=== PATIENT | female | born 1980 | race Caucasian/White ===

== ENCOUNTER 2017-06-04 00:20 | Observation (INO) | payer OTHER ==
[2017-06-04] VITALS (9 sets, daily range): BP systolic 11–127; BP diastolic 54–80
[~2017-06-04] VITALS: Ht 177.8 cm; Wt 116.6 kg
[~2017-06-04 00:20] MED LIST: CA C1TAB6 PO; FERR159T PO; FLUO-201 PO; HYDR-4309 PO; MULT1CAP59 PO; PANT20TA27 PO; PROP60TA15 PO; PROP80CA PO
[2017-06-04 06:18] LABS: PLATELET COUNT, AUTOMATED 243 K/uL (150-450)
[2017-06-04] MEDS ORDERED: SCOPOLAMINE 1.5 MG PATCH TD ONE ×3 (06:25→06:40)
[2017-06-04] MEDS ORDERED: MIDAZOLAM 2 MG/2 ML VIAL IVP ONE (06:30)
[2017-06-04] MEDS ORDERED: LIDOCAINE/SOD BICARB 8.4% SYR ID ONE (06:30)
[2017-06-04] MEDS ORDERED: cefOXitin/DEX(*) 2GM/50ML PREM 50 ML IVPB ONE (06:30)
[2017-06-04] MEDS ORDERED: NORMOSOL R SOLN(*) 1000 ML BAG 1,000 ML IV PRN (06:30)
[2017-06-04] MEDS ORDERED: DEXAMETHASONE SOD PHOS 10MG/ML ONE (06:46)
[2017-06-04] MEDS ORDERED: PROPOFOL EMUL(*) 10MG/ML 20 ML 20 ML ONE ×2 (06:46→08:23)
[2017-06-04] MEDS ORDERED: LIDOCAINE MPF 1% 5 ML VIAL ONE (06:46)
[2017-06-04] MEDS ORDERED: ONDANSETRON 4 MG/2 ML VIAL ONE (06:46)
[2017-06-04] MEDS ORDERED: ROCURONIUM BROM 10 MG/ML 10 ML ONE (06:46)
[2017-06-04] MEDS ORDERED: fentaNYL CITR 100 MCG/2 ML AMP ONE ×2 (06:46→10:44)
[2017-06-04] MEDS ORDERED: MIDAZOLAM 2 MG/2 ML VIAL ONE (06:47)
[2017-06-04] MEDS ORDERED: VASOPRESSIN 20 UNIT/ML VIAL ONE (06:56)
[2017-06-04] MEDS ORDERED: NS(*) 0.9% 100 ML BAG 100 ML ONE (06:56)
[2017-06-04] MEDS ORDERED: ROPIVACAINE 0.2% 20 ML VIAL ONE (06:56)
[2017-06-04] MEDS ORDERED: PHENAZOPYRIDINE 200 MG TAB ONE (06:57)
[2017-06-04] MEDS ORDERED: MORPHINE PF 5 MG/10 ML AMP ONE (07:04)
[2017-06-04] MEDS ORDERED: GLYCOPYRROLATE 0.2 MG/ML SDV ONE (07:52)
[2017-06-04] MEDS ORDERED: SUGAMMADEX SOD 500 MG/5 ML SDV ONE ×2 (09:47→11:38)
[2017-06-04] MEDS ORDERED: DLR(*) 1000 ML BAG 1,000 ML IV PRN (10:01)
[2017-06-04] MEDS ORDERED: ZOLPIDEM TARTRATE 10 MG TAB PO PRN (10:05)
[2017-06-04] MEDS ORDERED: SIMETHICONE 80 MG CHEW CHEW PRN (10:05)
[2017-06-04] MEDS ORDERED: ACETAMINOPHEN 325 MG TAB PO PRN (10:05)
[2017-06-04] MEDS ORDERED: PROMETHAZINE 25 MG/ML 1 ML AMP IVP PRN (10:05)
[2017-06-04] MEDS ORDERED: ONDANSETRON 4 MG/2 ML VIAL IV PRN (10:05)
[2017-06-04] MEDS ORDERED: BELLADONNA ALK/OPIUM 60MG SUPP PR PRN (10:05)
--- NOTE | 2017-06-04 10:15 | Post Operative Note ---
Operative Note - OPTICAL TECHNICIAN Operative Day Date: Jun 04, 2017 Time: 10:04 Physicians Surgeon: Yousif Slackline Operator: Kathy Anesthesia: GETA/spinal Diagnosis Pre-Op Diagnosis: Bicornuate uterus Enlarged uterus Menorrhagia Post-Op Diagnosis: Same Procedure Findings: enlarged uterus endometriosis bicornuate uterus Procedure(s): LAVH/BS MMC Cysto Specimen Removed:(Maybe N/A): uterus, tubes Complications: none [id number] Fluids Fluids: 1200 Estimated Blood Loss: 100 Dictated Date OP Note Dictated: Jun 04, 2017 Time OP Note Dictated: 10:06 Copies to: JEB MONTE MD, TRAVIS MD Jun 04, 2017 10:15
[2017-06-04] MEDS ORDERED: diphenhydrAMINE 25 MG CAP PO PRN (10:25)
[2017-06-04] MEDS ORDERED: NALBUPHINE HCL 10 MG/ML AMP IVP PRN (10:25)
[2017-06-04] MEDS: KETOROLAC 30 MG/ML VIAL IVP SCH ×3 (11:30→23:37)
--- NOTE | 2017-06-04 16:48 | OPERATIVE REPORT 1 ---
EVENT DATE: June 04, 2017 SURGEON: Abelardo Dodd MD ANESTHESIOLOGIST: Kyle Lock MD ANESTHESIA: General endotracheal and regional anesthesia with a spinal. IT ENGINEER: Yefri Chavez MD PREOPERATIVE DIAGNOSES 1. Enlarged uterus. 2. Menorrhagia. 3. Bicornuate uterus. POSTOPERATIVE DIAGNOSES 1. Enlarged uterus. 2. Menorrhagia. 3. Bicornuate uterus. 4. Endometriosis of the pelvic peritoneum. PROCEDURE PERFORMED 1. Laparoscopic-assisted vaginal hysterectomy. 2. Bilateral salpingectomy. 3. Modified Orellana culdoplasty. 4. Diagnostic cystoscopy. FLUIDS Crystalloid 1200 mL IV. ESTIMATED BLOOD LOSS Less than 100 mL. FINDINGS Inspecting the pelvis, the uterus was noted to be bicornuate, but only with a subtle indentation on the uterine fundus. There were not definite right and left uterine horns; however, there was definite right and left endometrial cavities. Normal ureters. Normal-appearing ovaries and tubes bilaterally. There was a pelvic peritoneal endometriosis noted in the posterior cul-de-sac along the uterosacral ligament. PROCEDURE IN DETAIL The patient was brought to the operating room with a working IV, and spinal anesthetic was placed by Dr. Lock. She was then moved to the dorsal supine position and prepped and draped in the usual sterile fashion in the dorsal lithotomy position. A weighted speculum was placed in the vagina. The cervix was grasped on the anterior lip with a single-toothed tenaculum. It was sounded to a depth of 10 cm with a definite uterine cavity deviating off to the patient's left and another one deviating off to the patient's right. The left cavity was used and carefully dilated to a size 7 Hegar dilator. A size 10 BARAK uterine manipulator was selected, assembled, and passed through the cervix into the uterus. The bulb was inflated and secured, and all other instruments were then removed. The legs were brought back to the supine position, and gloves were changed. The umbilicus was infiltrated with 0.2% Naropin, and a 5 mm stab incision was made. A Veress needle was passed through this incision into the abdomen, and a pneumoperitoneum was created to an intra-abdominal pressure of 20 mmHg. This was reduced to 15 mmHg once all ports had been placed. The Veress needle was removed, and a 5 mm bladeless trocar was passed through the umbilical incision while stabilizing the anterior abdominal wall and under direct visualization with the scope. The abdomen and pelvis were surveyed with the above findings noted. Two additional 5 mm ports were placed in the right and left lower quadrants under direct visualization with the scope and without incident. Using the Gyrus device, the left fallopian tube was dissected away from the ovary and its mesosalpinx connection along its length to the utero-ovarian ligament. This was then cauterized and transected with the Gyrus device, as well as the round ligament cauterized and transected. The broad ligament was then into the anterior and posterior leaflets while the anterior leaflet was dissected along the anterior uterus down to the prior section scar. Careful dissection in this location released this scar, pushing the bladder down and away from the operative area. On the contralateral side, the same procedure was performed, dissecting the fallopian tube away from its ovary and mesosalpinx to the utero-ovarian ligament, which was cauterized and transected. The round ligament was cauterized and transected with the Gyrus device, and the broad ligament was then into anterior and posterior leaflets. The anterior dissection and bladder reflection were completed from this side, followed by skeletonizing the uterine vasculature with dissecting down the posterior peritoneum. The uterine vessels on both sides were cauterized, but not transected. At this point, a small amount of irrigation fluid was released into the posterior cul-de-sac. All instruments were removed after the pneumoperitoneum was released. The instruments were secured to the patient's abdomen and covered. Legs were brought back to the lithotomy position, and we proceeded vaginally. A weighted speculum was placed in the vagina. The cervix was grasped on the anterior and posterior lips with Shar clamps and circumferentially injected with diluted Pitressin solution. Using the Bovie, a circumferential incision was made on the cervix. The vagina was put on stretch with the Shala, and the posterior cul-de-sac was entered sharply with curved Gudino scissors. A long-billed weighted speculum was inserted here, exposing the uterosacral ligaments. These were bilaterally clamped, cut, and suture ligated with Vicryl suture. Anteriorly, the vaginal mucosa was dissected off the underlying cervix using sharp dissection until we had reached the anterior dissection and entered the anterior cul-de-sac. A right-angle retractor was inserted here. We retracted the bladder out of the operative area. This exposed the cardinal ligaments which were bilaterally cut, clamped, and sutured ligated with a Vicryl suture tie. The remaining vascular pedicle was isolated, clamped, and cut excising the uterus, and it was sent to Pathology. The remaining pedicles were suture ligated, and then we inspected for bleeders. There was a small bleeder noted on the vascular pedicle on the patient's right side which was clamped and suture ligated again. It was then hemostatic. The modified Orellana culdoplasty stitch was placed by securing the vagina to the ipsilateral uterosacral ligament and obliterating the cul-de-sac with external Orellana stitches. The parietal peritoneum was then repaired using a 2-0 Vicryl running plicating pursestring stitch. Upon completion, the uterosacral ligaments were tied in the midline. The vagina was closed with a 2-0 Vicryl in a running locking stitch, and the Soria catheter was removed. Diagnostic cystoscopy was performed , observing the bladder without visible injury and both ureteral orifices with excellent urine jets noted on both sides. The bladder was again drained. The Soria catheter was replaced. Legs were brought back to the supine position. Gloves were changed, and we proceeded again laparoscopically, reinsufflating the abdomen and inspecting the surgical results from inside. There was an excellent support of the vaginal apex, no visible pedicle bleeding, and the pelvis was irrigated and suctioned dry. The pneumoperitoneum was suctioned out. All instruments were removed from the patient's abdomen. The skin incisions were repaired with 4-0 Monocryl simple subdermal and covered with Dermabond skin adhesive. She tolerated the procedure well. Sponge, lap, needle , and instrument counts were all correct times three. She was taken to recovery in stable condition. ESVIN
[2017-06-04] MEDS: FAMOTIDINE 20 MG TAB PO SCH (20:50)
[2017-06-04] MEDS: DOCUSATE CALCIUM 240 MG CAP PO SCH (20:51)
[2017-06-05 04:45] VITALS: BP 108/62
[2017-06-05] MEDS ORDERED: IBUPROFEN 800 MG TAB PO PRN (06:00)
[2017-06-05 06:13] LABS: PLATELET COUNT, AUTOMATED 182 K/uL (150-450)
[2017-06-05] MEDS: FAMOTIDINE 20 MG TAB PO SCH (08:30)
[2017-06-05] MEDS: DOCUSATE CALCIUM 240 MG CAP PO SCH (08:30)
[2017-06-05 08:35] VITALS: BP 109/65
[2017-06-05] MEDS ORDERED: FLUOXETINE 20 MG CAP PO SCH (09:00)
[2017-06-05] MEDS ORDERED: INFLUENZA VIRUS VAC 0.5 ML SYR IM ONLY ONE (09:00)
[2017-06-05] MEDS ORDERED: PROPRANOLOL HCL 80 MG PO SCH (09:30)
--- NOTE | 2017-06-05 11:33 | OB/GYN Progress Note ---
OB Subjective Progress Notes Subjective Doing so well. Pain very controlled and ambulating well. Soria out this AM and voiding well. Gas moving through. GI: NEG Nausea : Voiding Well Pain: Mild OB Objective Physical Exam Vital Signs Date Time Temp Pulse Resp B/P (MAP) Pulse Ox O2 Delivery O2 Flow Rate FiO2 06/05/17 08:35 97.8 72 16 109/65 (80) Room Air 06/05/17 04:45 1.0 06/04/17 23:40 97 Intake and Output 06/06/17 07:00 Intake Total 120 ml Output Total 775 ml Balance -655 ml Intake Oral 120 ml Output Urine Total 775 ml # Voids 1 General Appearance: Alert/Awake/No Acute Distress Neurological: No Gross deficits Cardiovascular: Normal Rhythm & Peripheral Pulses, Regular Rate and Rhythm Respiratory: No Respiratory Distress, Clear to Auscultation Abdomen: Soft, Non-Tender, Non-Distended Incision: Clean, Dry, Intact Psychological: Alert & Oriented X3, Appropriate Mood & Affect Result Diagram: 06/05/17 0600 Assessment and Plan GLOVE PRINTER Plan: Routine Post-Op Care, Discharge Home Today Problems: (1) Status post laparoscopic hysterectomy JEB MONTE MD Jun 05, 2017 11:33
[2017-06-05] MEDS ORDERED: IBUP800T37 PO (11:34)
[2017-06-05] MEDS ORDERED: PER PO (11:34)
--- NOTE | 2017-06-05 11:35 | Short(Outpt) Discharge Summary ---
Discharge Summary Reason for Hosp/Final Diag: (1) Status post laparoscopic hysterectomy Departure Discharge to: Home, Self Care Discharge Instructions Home Meds Active Scripts Oxycodone/Acetaminophen (OXYCODONE/ACETAMINOPHEN 5MG/325 MG) 5 Mg/325 Mg Tab, 1- 2 TAB PO Q4H Y for PAIN, #20 TAB 0 Refills Prov:ABELARDO DODD MD 06/05/17 Reported Medications Fluoxetine Hcl (PROZAC) 10 Mg Capsule, 10 MG PO QDAY, CAPSULE 05/28/17 Multivitamin (MULTIVITAMINS) 1 Each Capsule, 1 EACH PO DAILY, CAPSULE 05/28/17 Ferrous Sulfate, Dried (IRON) 159 Mg Tablet.er, 159 MG PO DAILY 05/28/17 Ca Carbonate/Vitamin D3/Vit K (CALCIUM + D SOFT CHEWABLE TAB) 1 Each Tab.chew, 1 EACH PO DAILY, TAB.CHEW 05/28/17 Propranolol Hcl (INNOPRAN XL) 80 Mg Cap.er.24h, 80 MG PO QDAY 05/28/17 Pantoprazole Sodium (PANTOPRAZOLE SODIUM) 20 Mg Tablet.dr, 20 MG PO QDAY, TAB.SR 02/20/16 Follow up Referrals: TRADING ANALYST - In Two Weeks @ [facility] with Abelardo Dodd Md Diet: Regular Activity: As Tolerated Copies to: ABELARDO DODD MD, TRAVIS MD Jun 05, 2017 11:35
[2017-06-06] MEDS ORDERED: PATIENT'S OWN MED PO SCH ×2 (09:00)
== END 2017-06-05 11:34 | disposition home or self-care (01) ==
LOC: OR 00:20 → OB 10:58
PROVIDERS: ADMIT Obstetrics & Gynecology; ATTEND Obstetrics & Gynecology
DX: N85.2 Hypertrophy of uterus (principal); N92.0 Excessive and frequent menstruation with regular cycle; Q51.3 Bicornate uterus; Z23 Encounter for immunization; N80.3 Endometriosis of pelvic peritoneum
CPT/HCPCS: 36415; 58552; 84703; 85014; 85018; 85025; 88307; 90471; 90674; G0378; J0694; J1100; J1885; J2001; J2250; J2270; J2405; J2704; J2795; J3010; J3490; J7050

== ENCOUNTER → 2018-02-14 | Outpatient (CLI) | payer OTHER ==
[~2018-02-14] MED LIST changes: +IBUP800T37 PO; +PER PO
--- NOTE | 2018-02-14 14:59 | RADIOLOGY IMAGING REPORT ---
FACILITY: [facility] PATIENT NAME: Desiree Hamilton : 1980 MR: [id number] V: [id number] EXAM DATE: ORDERING PHYSICIAN: DESIREE CLARK TECHNOLOGIST: Location: [facility] Patient: Desiree Hamilton : 1980 Visit/Account:[id number] Date of Sevice: 02/14/2018 Exam type: CHEST PA AND LAT History: Cough and fever x2 weeks Comparison: June 09, 2015. Findings: There is a patchy infiltrate in the right lower lobe. The remainder the lung sherman are well aerated . There is no evidence of pleural effusions. Cardiac silhouette is normal. IMPRESSION: 1. Patchy infiltrate in the right lower lobe likely representing an acute pneumonia Report Dictated By: Ashlee Agarwal MD at 02/14/2018 2:54 PM Report E-Signed By: Ashlee Agarwal MD at 02/14/2018 2:55 PM WSN:[email or web address]
== END ==
LOC: RAD 12:25
PROVIDERS: ATTEND Nurse Practitioner Family
DX: R50.9 Fever, unspecified (principal); R05 Cough
CPT/HCPCS: 71046

== ENCOUNTER → 2018-02-24 | Emergency (ER) | payer OTHER ==
[~2018-02-24] MED LIST changes: +ALBUTEROL/IPRATROPIUM 3 ML NEB NEB ONE; +AMOX-559 PO; +ASPIRIN 81 MG CHEW PO ONE; -HYDR-4309 PO; +HYDR-653 PO; +IOPAMIDOL 76% 75 ML INFUS BTL 75 ML ONE; +KETOROLAC 15 MG/ML VIAL IVP ONE; +LOR5/325 PO; +NS(*) 0.9% 50 ML BAG 50 ML ONE; +cefTRIAXone 1 GM VIAL IVP ONE
--- NOTE | 2018-02-24 12:26 | ER Report ---
History and Physical Time Seen By MD: 12:26 HPI/ROS CHIEF COMPLAINT: Chest wall pain HISTORY OF PRESENT ILLNESS: Patient is a 37-year-old female who was diagnosed with pneumonia in the 2nd week of February started a course of oral Zithromax was then switched to a different "antibiotic" because the Zithromax did not seem to be working. Patient states she's had gradual improvement still has had a cough. She would describe the cough is wet sounding but nonproductive. Today about an hour prior to presentation she developed tightness in a bandlike fashion around her chest and it's worse with movement or deep inspiration. She denies any fevers or chills. She denies any prior history of DVT or PE. She denies any cardiac history. REVIEW OF SYSTEMS: Constitutional: No fever, no chills. Eyes: No discharge. ENT: No sore throat. Cardiovascular: Chest pain, no palpitations Respiratory: Dyspnea on exertion Gastrointestinal: No abdominal pain, no vomiting. Genitourinary: No hematuria. Musculoskeletal: No back pain. Skin: No rashes. Neurological: No headache. Allergies: Coded Allergies: No Known Drug Allergies (Unverified , 02/24/18) Home Meds Active Scripts Hydrocodone Bit/Acetaminophen (HYDROCODON-ACETAMINOPHEN 5-325) 1 Each Tablet, 1 EACH PO Q4-6H PRN for PAIN, #12 TAB 0 Refills TAKE ONE TABLET BY MOUTH EVERY 4-6 HOURS NEEDED FOR PAIN Prov:RUDY YOUNG MD 02/24/18 Amoxicillin/Pot Clav 875-125 Mg Tab (AUGMENTIN 875-125 TABLET) 1 Each Tablet, 1 TAB PO Q12H for 14 Days, #28 TAB 0 Refills Prov:RUDY YOUNG MD 02/24/18 Ibuprofen (IBUPROFEN) 800 Mg Tablet, 800 MG PO Q8H PRN for PAIN, #30 TAB 0 Refills Prov:JEB MONTE MD 06/05/17 Reported Medications Multivitamin (MULTIVITAMINS) 1 Each Capsule, 1 EACH PO DAILY, CAPSULE 05/28/17 Ferrous Sulfate, Dried (IRON) 159 Mg Tablet.er, 159 MG PO DAILY 05/28/17 Ca Carbonate/Vitamin D3/Vit K (CALCIUM + D SOFT CHEWABLE TAB) 1 Each Tab.chew, 1 EACH PO DAILY, TAB.CHEW 05/28/17 Propranolol Hcl (INNOPRAN XL) 80 Mg Cap.er.24h, 80 MG PO QDAY 05/28/17 Pantoprazole Sodium (PANTOPRAZOLE SODIUM) 20 Mg Tablet.dr, 20 MG PO QDAY, TAB.SR 02/20/16 Discontinued Reported Medications Fluoxetine Hcl (PROZAC) 10 Mg Capsule, 10 MG PO QDAY, CAPSULE 05/28/17 Discontinued Scripts Oxycodone/Acetaminophen (OXYCODONE/ACETAMINOPHEN 5MG/325 MG) 5 Mg/325 Mg Tab, 1- 2 TAB PO Q4H PRN for PAIN, #20 TAB 0 Refills Prov:JEB MONTE MD 06/05/17 Past Medical/Surgical History Noncontributory towards this chief complaint Hx Smoking: No Smoking Status: Never Smoker Exposure to Second Hand Smoke?: No Hx Alcohol Use: Yes Constitutional Vital Sign - Last 24 Hours 02/24/18 02/24/18 02/24/18 02/24/18 12:23 12:27 12:27 12:30 Temp 98.0 Pulse ??? 90 Resp 20 B/P (MAP) 140/113 (122) 140/113 141/99 (113) Pulse Ox 98 O2 Delivery Room Air 02/24/18 02/24/18 02/24/18 02/24/18 12:38 12:45 12:53 13:00 Pulse 86 94 Resp 20 13 B/P (MAP) 132/96 (108) 135/95 (108) Pulse Ox 98 98 02/24/18 02/24/18 02/24/18 02/24/18 13:08 13:15 13:23 13:28 Pulse 84 88 84 Resp 8 19 14 B/P (MAP) 128/91 (103) Pulse Ox 96 93 02/24/18 02/24/18 02/24/18 02/24/18 13:30 13:35 13:45 13:50 Pulse 102 112 Resp 11 12 B/P (MAP) 125/78 (94) 132/85 (101) Pulse Ox 92 90 Physical Exam General Appearance: The patient is alert, has no immediate need for airway protection and no signs of toxicity. Eyes: Pupils equal and round no pallor or injection. ENT, Mouth: Mucous membranes are moist. Respiratory: There are no retractions, lungs are clear to auscultation. Mild wheeze with cough Cardiovascular: Regular rate and rhythm. Gastrointestinal: Abdomen is soft and non tender, no masses, bowel sounds normal. Neurological: Awake and alert Skin: Warm and dry, no rashes. Musculoskeletal: Neck is supple non tender. Extremities are nontender, nonswollen and have full range of motion. Medical Decision Making Data Points Result Diagram: 02/24/18 1225 02/24/18 1225 Laboratory Hematology Test 02/24/18 12:25 Red Blood Count 5.04 M/uL (4.17-5.56) Mean Corpuscular Volume 90.2 fL (80.0-96.0) Mean Corpuscular Hemoglobin 30.0 pg (26.0-33.0) Mean Corpuscular Hemoglobin Concent 33.3 g/dL (32.0-36.0) Red Cell Distribution Width 14.0 % (11.5-14.5) Mean Platelet Volume 9.5 fL (7.2-11.1) Neutrophils (%) (Auto) 63.0 % (39.4-72.5) Lymphocytes (%) (Auto) 25.7 % (17.6-49.6) Monocytes (%) (Auto) 8.5 % (4.1-12.4) Eosinophils (%) (Auto) 2.2 % (0.4-6.7) Basophils (%) (Auto) 0.6 % (0.3-1.4) Nucleated RBC Relative Count (auto) 0.0 /100WBC Neutrophils # (Auto) 6.1 K/uL (2.0-7.4) Lymphocytes # (Auto) 2.5 K/uL (1.3-3.6) Monocytes # (Auto) 0.8 K/uL (0.3-1.0) Eosinophils # (Auto) 0.2 K/uL (0.0-0.5) Basophils # (Auto) 0.1 K/uL (0.0-0.1) Nucleated RBC Absolute Count (auto) 0.00 K/uL Prothrombin Time 12.4 seconds (12.0-14.4) Prothromb Time International Ratio 0.92 Activated Partial Thromboplast Time 44 seconds (23-35) Sodium Level 139 mmol/L (137-145) Potassium Level 3.5 mmol/L (3.5-5.0) Chloride Level 100 mmol/L (98-107) Carbon Dioxide Level 26 mmol/L (22-31) Blood Urea Nitrogen 8 mg/dl (7-18) Creatinine 0.90 mg/dl (0.52-1.04) Glomerular Filtration Rate Calc > 60.0 Random Glucose 93 mg/dl (75-110) Calcium Level 9.1 mg/dl (8.4-10.2) Total Bilirubin 0.4 mg/dl (0.2-1.3) Aspartate Amino Transf (AST/SGOT) 21 U/L (0-35) Alanine Aminotransferase (ALT/SGPT) 26 U/L (0-56) Alkaline Phosphatase 92 U/L (0-126) Troponin I < 0.012 ng/ml B-Type Natriuretic Peptide 11 pg/ml (0-100) Total Protein 7.8 g/dl (6.3-8.2) Albumin 4.2 g/dl (3.5-5.0) Chemistry Test 02/24/18 12:25 White Blood Count 9.6 k/uL (4.5-11.0) Red Blood Count 5.04 M/uL (4.17-5.56) Hemoglobin 15.1 g/dL (12.0-16.0) Hematocrit 45.4 % (34.0-47.0) Mean Corpuscular Volume 90.2 fL (80.0-96.0) Mean Corpuscular Hemoglobin 30.0 pg (26.0-33.0) Mean Corpuscular Hemoglobin Concent 33.3 g/dL (32.0-36.0) Red Cell Distribution Width 14.0 % (11.5-14.5) Platelet Count 275 K/uL (150-450) Mean Platelet Volume 9.5 fL (7.2-11.1) Neutrophils (%) (Auto) 63.0 % (39.4-72.5) Lymphocytes (%) (Auto) 25.7 % (17.6-49.6) Monocytes (%) (Auto) 8.5 % (4.1-12.4) Eosinophils (%) (Auto) 2.2 % (0.4-6.7) Basophils (%) (Auto) 0.6 % (0.3-1.4) Nucleated RBC Relative Count (auto) 0.0 /100WBC Neutrophils # (Auto) 6.1 K/uL (2.0-7.4) Lymphocytes # (Auto) 2.5 K/uL (1.3-3.6) Monocytes # (Auto) 0.8 K/uL (0.3-1.0) Eosinophils # (Auto) 0.2 K/uL (0.0-0.5) Basophils # (Auto) 0.1 K/uL (0.0-0.1) Nucleated RBC Absolute Count (auto) 0.00 K/uL Prothrombin Time 12.4 seconds (12.0-14.4) Prothromb Time International Ratio 0.92 Activated Partial Thromboplast Time 44 seconds (23-35) Glomerular Filtration Rate Calc > 60.0 Calcium Level 9.1 mg/dl (8.4-10.2) Total Bilirubin 0.4 mg/dl (0.2-1.3) Aspartate Amino Transf (AST/SGOT) 21 U/L (0-35) Alanine Aminotransferase (ALT/SGPT) 26 U/L (0-56) Alkaline Phosphatase 92 U/L (0-126) Troponin I < 0.012 ng/ml B-Type Natriuretic Peptide 11 pg/ml (0-100) Total Protein 7.8 g/dl (6.3-8.2) Albumin 4.2 g/dl (3.5-5.0) Coagulation Test 02/24/18 12:25 Prothrombin Time 12.4 seconds Prothromb Time International Ratio 0.92 Activated Partial Thromboplast Time 44 seconds EKG/Imaging EKG Interpretation EKG shows normal sinus rhythm with a ventricular rate of [address] segment or T-wave abnormalities are noted. Monitor Interpretation: Normal Sinus Rhythm Imaging FACILITY: [facility] PATIENT NAME: Lily Hamilton : 1980 MR: [id number] V: [id number] EXAM DATE: ORDERING PHYSICIAN: RUDY YOUNG TECHNOLOGIST: Location: [facility] Patient: Lily Hamilton : 1980 Visit/Account:[id number] Date of Sevice: 02/24/2018 EXAMINATION: CTA of the chest with IV contrast HISTORY: Chest pain. Recent pneumonia. TECHNIQUE: Pulmonary embolus protocol - Thin axial CT images of the chest were obtained with IV contrast during maximal pulmonary arterial opacification. Reconstruction of the source data includes multiplanar 2D coronal and sagittal reconstructed images, and 3D coronal and sagittal MIP images. Oyster Bed Worker images have been stored on PACS. One of the following dose optimization techniques was utilized in the performance of this exam: Automated exposure control; adjustment of the mA and/or kV according to the patient's size; or use of an iterative reconstruction technique. Specific details can be referenced in the facility's radiology CT exam operational policy. Contrast: 75 mL of IV Isovue-370. COMPARISON: Chest x-ray 02/14/2018. FINDINGS: Pulmonary arteries: The pulmonary arteries are well opacified, without suspicious filling defect. Heart, aorta, and great vessels: Negative. Lungs and pleura: There is patchy consolidation in the right lower lobe compatible with pneumonia. This appears relatively stable compared to the recent prior chest radiograph. Associated bronchial thickening. The left lung remains clear. Central airways are patent. No pleural effusion or pneumothorax. Mediastinum and selina: Negative. Visualized upper abdomen: There is a 1.3 cm cyst in the left lobe of the liver. Chest wall: Negative. Bones: Negative. IMPRESSION: 1. No evidence of pulmonary embolism. 2. Patchy consolidation in the right lower lobe, compatible with pneumonia. Associated bronchial thickening in the right lower lobe. 3. No other acute findings in the chest. Report Dictated By: Scot Curran MD at 02/24/2018 2:21 PM Report E-Signed By: Scot Curran MD at 02/24/2018 2:26 PM WSN:[id number] ED Course/Re-evaluation Clinical Indication for ER IV: IV Access ED Course 02/24/2018 12:58:45 pm After history and physical exam was performed differential diagnosis was formulated which includes but is not limited to muscle wall strain, persistent pneumonia, pneumothorax, pulmonary embolism, acute coronary syndrome. Decision to Disposition Date: Feb 24, 2018 Decision to Disposition Time: 15:15 Depart Departure Latest Vital Signs Vital Signs Date Time Temp Pulse Resp B/P (MAP) Pulse Ox O2 Delivery O2 Flow Rate FiO2 02/24/18 13:50 112 12 90 02/24/18 13:45 132/85 (101) 02/24/18 12:27 98.0 Room Air Impression: Primary Impression: Pneumonia Condition: Improved Disposition: HOME OR SELF-CARE Referrals: JEB MONTE MD (PCP) New Scripts Hydrocodone Bit/Acetaminophen (HYDROCODON-ACETAMINOPHEN 5-325) 1 Each Tablet 1 EACH PO Q4-6H PRN for PAIN, #12 TAB 0 Refills TAKE ONE TABLET BY MOUTH EVERY 4-6 HOURS NEEDED FOR PAIN Prov: RUDY YOUNG MD 02/24/18 Amoxicillin/Pot Clav 875-125 Mg Tab (AUGMENTIN 875-125 TABLET) 1 Each Tablet 1 TAB PO Q12H for 14 Days, #28 TAB 0 Refills Prov: RUDY YOUNG MD 02/24/18 Patient Instructions: Bacterial Pneumonia (DC) Problem Qualifiers Primary Impression: Pneumonia Pneumonia type: due to unspecified organism Laterality: right Lung location: unspecified part of lung Qualified Codes: J18.9 - Pneumonia, unspecified organism RUDY YOUNG MD Feb 24, 2018 12:26
[2018-02-24 13:04] LABS: PLATELET COUNT, AUTOMATED 275 K/uL (150-450)
[2018-02-24 13:15] LABS: INR 0.92
[2018-02-24 13:45] VITALS: BP 132/85
--- NOTE | 2018-02-24 14:12 | EKG ---
FACILITY: [facility] [place] PATIENT NAME: DESIREE SABA : [id number] MR: [id number] V: [id number] EXAM DATE: ORDERING PHYSICIAN: RUDY YOUNG TECHNOLOGIST: ILEANA Test Reason : PNEUMONIA CHEST PAIN Blood Pressure : / mmHG Vent. Rate : 089 BPM Atrial Rate : 089 BPM P-R Int : 120 ms QRS Dur : 090 ms QT Int : 380 ms P-R-T Axes : 054 071 047 degrees QTc Int : 462 ms Normal sinus rhythm Normal ECG No previous ECGs available Confirmed by Andi Cotter ([id number]) on 02/24/2018 10:35:03 PM Referred By: HECTOR Confirmed By:Andi Gould
--- NOTE | 2018-02-24 14:28 | RADIOLOGY IMAGING REPORT ---
FACILITY: [facility] PATIENT NAME: Lily Hamilton : 1980 MR: [id number] V: [id number] EXAM DATE: [id number] ORDERING PHYSICIAN: RUDY YOUNG TECHNOLOGIST: Location: [facility] Patient: Lily Hamilton : 1980 Visit/Account:[id number] Date of Sevice: 02/24/2018 EXAMINATION: CTA of the chest with IV contrast HISTORY: Chest pain. Recent pneumonia. TECHNIQUE: Pulmonary embolus protocol - Thin axial CT images of the chest were obtained with IV con trast during maximal pulmonary arterial opacification. Reconstruction of the source data includes mul tiplanar 2D coronal and sagittal reconstructed images, and 3D coronal and sagittal MIP images. Repres entative images have been stored on PACS. One of the following dose optimization techniques was utilized in the performance of this exam: Autom ated exposure control; adjustment of the mA and/or kV according to the patient's size; or use of an i terative reconstruction technique. Specific details can be referenced in the facility's radiology C T exam operational policy. Contrast: 75 mL of IV Isovue-370. COMPARISON: Chest x-ray 02/14/2018. FINDINGS: Pulmonary arteries: The pulmonary arteries are well opacified, without suspicious filling defect. Heart, aorta, and great vessels: Negative. Lungs and pleura: There is patchy consolidation in the right lower lobe compatible with pneumonia. T his appears relatively stable compared to the recent prior chest radiograph. Associated bronchial thi ckening. The left lung remains clear. Central airways are patent. No pleural effusion or pneumothorax . Mediastinum and selina: Negative. Visualized upper abdomen: There is a 1.3 cm cyst in the left lobe of the liver. Chest wall: Negative. Bones: Negative. IMPRESSION: 1. No evidence of pulmonary embolism. 2. Patchy consolidation in the right lower lobe, compatible with pneumonia. Associated bronchial thic kening in the right lower lobe. 3. No other acute findings in the chest. Report Dictated By: Scot Curran MD at 02/24/2018 2:21 PM Report E-Signed By: Scot Curran MD at 02/24/2018 2:26 PM WSN:[id number]
== END ==
LOC: ER 12:31
DX: J18.9 Pneumonia, unspecified organism (principal)
CPT/HCPCS: 71275; 83880; 84484; 85025; 85610; 85730; 93005; 94640; 96374; 96375; 99284; J0696; J1885; J7050; J7620; Q9967; 82040; 82247; 82310; 82374; 82435; 82565; 82947; 84075; 84132; 84155; 84295; 84450; 84460; 84520